=== PATIENT | male | born 1955 | race Caucasian/White ===

== ENCOUNTER 2017-10-12 15:46 | Inpatient (IN) | payer MEDICAID ==
[~2017-10-12] VITALS: Ht 177.8 cm; Wt 56.7 kg
[2017-10-12 16:14] LABS: BASOPHILS % (AUTO) 0.2 % (0-1); EOSINOPHILS # (AUTO) 0.1 X10'3 (0-0.9); EOSINOPHILS % (AUTO) 0.4 % (0-6); HEMATOCRIT 48.6 % (42.0-52.0); HEMOGLOBIN 16.1 g/dl (14.0-17.9); LYMPHOCYTES # (AUTO) 1.8 X10'3 (1.1-4.8); LYMPHOCYTES % (AUTO) 13.7 % (21-51); MEAN CORPUSCULAR HEMOGLOBIN 30.5 PG (27.0-31.0); MEAN CORPUSCULAR HGB CONC 33.2 % (33.0-36.5); MEAN CORPUSCULAR VOLUME 91.7 FL (78-98); MEAN PLATELET VOLUME 8.1 FL (7.4-10.4); MONOCYTES # (AUTO) 0.9 X10'3 (0-0.9); MONOCYTES % (AUTO) 7.1 % (2-12); NEUTROPHILS # (AUTO) 10.4 X10'3 (1.8-7.7); NEUTROPHILS % (AUTO) 78.6 % (42-75); PLATELET COUNT 405 X10'3 (140-440); RED CELL DISTRIBUTION WIDTH 13.9 % (11.5-14.5); WHITE BLOOD COUNT 13.3 X10'3 (4.5-11.0)
[2017-10-12 16:24] LABS: PARTIAL THROMBOPLASTIN TIME 27 SECONDS (22-32)
[2017-10-12 16:35] LABS: ALANINE AMINOTRANSFERASE 27 U/L (12-78); ALBUMIN 3.9 G/DL (3.4-5.0); ALKALINE PHOSPHATASE 77 IU/L (46-116); ANION GAP 4 (8-16); ASPARTATE AMINO TRANSFERASE 27 U/L (10-37); BILIRUBIN,TOTAL 0.5 MG/DL (0.1-1.0); BLOOD UREA NITROGEN 14 MG/DL (7-18); BUN/CREATININE RATIO 13.2 (5.4-32.0); CALCIUM 9.2 MG/DL (8.5-10.1); CHLORIDE 101 MMOL/L (99-107); CREATININE 1.06 MG/DL (0.60-1.10); GLUCOSE 145 MG/DL (70-104); POTASSIUM 3.6 MMOL/L (3.5-5.1); SODIUM 137 MMOL/L (135-145); TOTAL CARBON DIOXIDE 32.5 MMOL/L (24-32); TOTAL PROTEIN 7.8 G/DL (6.4-8.2); eGFR 70 ML/MIN
[2017-10-12] MEDS ORDERED: aspirin 325mg tablet PO ONE (16:40)
[2017-10-12] MEDS ORDERED: ipratropium/albuterol 3ml nebule NEB ONE (16:45)
[2017-10-12] MEDS ORDERED: methylPREDNISolone sod succ 125mg/2ml vial IV ONE (16:45)
[2017-10-12] MEDS ORDERED: CefTRIAXone/D5W-Rocephin 1gm 50 ML IV ONE (17:25)
[2017-10-12] MEDS ORDERED: azithromycin/NS 500mg/250ml 250 ML IV ONE (17:25)
[2017-10-12] MEDS ORDERED: ALB0.5UD IH (17:36)
[2017-10-12 17:38] LABS: D-DIMER < 0.19 MG/L FEU (0-0.50)
[2017-10-12] MEDS ORDERED: heparin 10,000 units/1 ML INJ IV PRN (17:55)
[2017-10-12] MEDS ORDERED: heparin 10,000 units/1 ML INJ IV ONE (17:55)
[2017-10-12] MEDS ORDERED: ondansetron/PF 4mg/2ml inj IV PRN (20:45)
[2017-10-12] MEDS ORDERED: mag hydrox/Alum hydrox/simeth 30ml oral suspension PO PRN (20:45)
[2017-10-12] MEDS ORDERED: ipratropium/albuterol 3ml nebule NEB PRN (20:45)
[2017-10-12] MEDS ORDERED: magnesium hydroxide 30ml (MOM) UD suspension PO PRN (20:45)
[2017-10-12] MEDS ORDERED: acetaminophen 325mg tablet PO PRN ×2 (20:45)
[2017-10-12] MEDS ORDERED: lisinopril 10 MG tablet PO SCH (20:50)
[2017-10-12 22:21] VITALS: BP 138/89
[2017-10-13] MEDS: methylPREDNISolone sod succ/PF 40mg inj. IV SCH ×4 (02:31→19:52)
[2017-10-13 03:00] VITALS: BP 107/65
[2017-10-13 04:08] LABS: BASOPHILS % (AUTO) 0 % (0-1); EOSINOPHILS % (AUTO) 0.6 % (0-6); LYMPHOCYTES # (AUTO) 0.5 X10'3 (1.1-4.8); LYMPHOCYTES % (AUTO) 6.2 % (21-51); MEAN CORPUSCULAR HEMOGLOBIN 30.6 PG (27.0-31.0); MEAN CORPUSCULAR HGB CONC 33.4 % (33.0-36.5); MEAN CORPUSCULAR VOLUME 91.7 FL (78-98); MEAN PLATELET VOLUME 8.4 FL (7.4-10.4); MONOCYTES # (AUTO) 0.1 X10'3 (0-0.9); MONOCYTES % (AUTO) 1.3 % (2-12); NEUTROPHILS # (AUTO) 7.3 X10'3 (1.8-7.7); NEUTROPHILS % (AUTO) 91.9 % (42-75); PLATELET COUNT 339 X10'3 (140-440); RED BLOOD COUNT 4.91 X10'6 (4.70-6.10); RED CELL DISTRIBUTION WIDTH 13.9 % (11.5-14.5); WHITE BLOOD COUNT 7.9 X10'3 (4.5-11.0)
[2017-10-13 04:26] LABS: ALBUMIN 3.3 G/DL (3.4-5.0); ANION GAP 4 (8-16); BLOOD UREA NITROGEN 20 MG/DL (7-18); BUN/CREATININE RATIO 21.1 (5.4-32.0); CALCIUM 9.2 MG/DL (8.5-10.1); CHLORIDE 105 MMOL/L (99-107); CREATININE 0.95 MG/DL (0.60-1.10); GLUCOSE 174 MG/DL (70-104); POTASSIUM 4.1 MMOL/L (3.5-5.1); SODIUM 140 MMOL/L (135-145); TOTAL CARBON DIOXIDE 30.8 MMOL/L (24-32); eGFR 80 ML/MIN
[2017-10-13 07:12] VITALS: BP 104/71
[2017-10-13] MEDS: aspirin 325mg tablet PO SCH (07:39)
[2017-10-13] MEDS: lisinopril 5mg tablet PO SCH (07:39)
[2017-10-13] MEDS: enoxaparin 40mg/0.4ml syringe SQ SCH (07:39)
[2017-10-13 11:00] VITALS: BP 124/86
[2017-10-13 15:00] VITALS: BP 125/79
[2017-10-13 19:00] VITALS: BP 133/91
[2017-10-13] MEDS: guaiFENesin ER 600mg tablet PO SCH (19:52)
[2017-10-13 23:00] VITALS: BP 128/72
[2017-10-14] MEDS: methylPREDNISolone sod succ/PF 40mg inj. IV SCH ×2 (01:44→08:26)
[2017-10-14 03:00] VITALS: BP 140/88
[2017-10-14 05:20] LABS: BASOPHILS % (AUTO) 0.1 % (0-1); EOSINOPHILS % (AUTO) 0 % (0-6); HEMATOCRIT 43.5 % (42.0-52.0); HEMOGLOBIN 14.5 g/dl (14.0-17.9); LYMPHOCYTES % (AUTO) 4.5 % (21-51); MEAN CORPUSCULAR HEMOGLOBIN 30.9 PG (27.0-31.0); MEAN CORPUSCULAR HGB CONC 33.3 % (33.0-36.5); MEAN CORPUSCULAR VOLUME 92.8 FL (78-98); MEAN PLATELET VOLUME 8.7 FL (7.4-10.4); MONOCYTES # (AUTO) 0.4 X10'3 (0-0.9); MONOCYTES % (AUTO) 1.8 % (2-12); NEUTROPHILS # (AUTO) 21.2 X10'3 (1.8-7.7); NEUTROPHILS % (AUTO) 93.6 % (42-75); PLATELET COUNT 355 X10'3 (140-440); RED BLOOD COUNT 4.69 X10'6 (4.70-6.10); RED CELL DISTRIBUTION WIDTH 14.1 % (11.5-14.5); WHITE BLOOD COUNT 22.6 X10'3 (4.5-11.0)
[2017-10-14 06:03] LABS: ALBUMIN 3.1 G/DL (3.4-5.0); ANION GAP 5 (8-16); BLOOD UREA NITROGEN 18 MG/DL (7-18); BUN/CREATININE RATIO 22.5 (5.4-32.0); CALCIUM 8.9 MG/DL (8.5-10.1); CHLORIDE 103 MMOL/L (99-107); GLUCOSE 139 MG/DL (70-104); POTASSIUM 4.2 MMOL/L (3.5-5.1); SODIUM 139 MMOL/L (135-145); TOTAL CARBON DIOXIDE 31.4 MMOL/L (24-32); eGFR > 90 ML/MIN
[2017-10-14 06:25] LABS: PLATELET ESTIMATE NORMAL; TOTAL CELLS COUNTED 100
[2017-10-14 06:30] VITALS: BP_SYST 104; BP_SYST 112; BP_DIAS 71
[2017-10-14] MEDS: ipratropium/albuterol 3ml nebule NEB SCH ×4 (07:08→19:00)
[2017-10-14] MEDS ORDERED: iohexol 350MG/ML 100ml bottle IV ONE (07:53)
[2017-10-14] MEDS: guaiFENesin ER 600mg tablet PO SCH ×2 (08:26→19:08)
[2017-10-14] MEDS: aspirin 325mg tablet PO SCH (08:26)
[2017-10-14] MEDS: lisinopril 5mg tablet PO SCH (08:26)
[2017-10-14] MEDS: enoxaparin 40mg/0.4ml syringe SQ SCH (08:31)
[2017-10-14 11:00] VITALS: BP 151/82
[2017-10-14] MEDS ORDERED: metoprolol tartrate 1mg/ml inj IV PRN (14:20)
[2017-10-14] MEDS ORDERED: nitroGLYCERIN 0.4mg SUBLingual tab SL PRN (14:20)
[2017-10-14] MEDS ORDERED: CAFFEINE CITRATE 60 MG/3 ML injection vial IV PRN (14:20)
[2017-10-14] MEDS ORDERED: regadenoson 0.4mg/5ml syringe IV PRN (14:20)
[2017-10-14] MEDS: aspirin 325mg tablet, delayed-release (Ecotrin) PO SCH (14:59)
[2017-10-14 15:00] VITALS: BP 109/60
[2017-10-14 18:21] LABS: CHOL/HDL RATIO 2.6 (0.00-4.99); CHOLESTEROL 174 MG/DL (0-200); HDL CHOLESTEROL 66 MG/DL (35-60); LDL CHOLESTEROL 89 MG/DL (50-100); TRIGLYCERIDES 65 MG/DL (20-135)
[2017-10-14 19:00] VITALS: BP 119/63
[2017-10-14 23:00] VITALS: BP 129/77
[2017-10-15] VITALS (13 sets, daily range): BP systolic 115–154; BP diastolic 40–93
[2017-10-15 05:36] LABS: BASOPHILS % (AUTO) 0.2 % (0-1); EOSINOPHILS % (AUTO) 0 % (0-6); HEMATOCRIT 44.7 % (42.0-52.0); HEMOGLOBIN 14.8 g/dl (14.0-17.9); LYMPHOCYTES # (AUTO) 1.4 X10'3 (1.1-4.8); LYMPHOCYTES % (AUTO) 8.6 % (21-51); MEAN CORPUSCULAR HEMOGLOBIN 30.5 PG (27.0-31.0); MEAN CORPUSCULAR HGB CONC 33.1 % (33.0-36.5); MEAN CORPUSCULAR VOLUME 92.1 FL (78-98); MEAN PLATELET VOLUME 9.1 FL (7.4-10.4); MONOCYTES # (AUTO) 0.6 X10'3 (0-0.9); MONOCYTES % (AUTO) 3.4 % (2-12); NEUTROPHILS # (AUTO) 14.4 X10'3 (1.8-7.7); NEUTROPHILS % (AUTO) 87.8 % (42-75); PLATELET COUNT 314 X10'3 (140-440); RED BLOOD COUNT 4.86 X10'6 (4.70-6.10); RED CELL DISTRIBUTION WIDTH 14.5 % (11.5-14.5); WHITE BLOOD COUNT 16.4 X10'3 (4.5-11.0)
[2017-10-15 05:43] LABS: ALBUMIN 2.9 G/DL (3.4-5.0); ANION GAP 5 (8-16); BLOOD UREA NITROGEN 24 MG/DL (7-18); BUN/CREATININE RATIO 29.3 (5.4-32.0); CALCIUM 8.7 MG/DL (8.5-10.1); CHLORIDE 105 MMOL/L (99-107); CREATININE 0.82 MG/DL (0.60-1.10); GLUCOSE 90 MG/DL (70-104); POTASSIUM 3.7 MMOL/L (3.5-5.1); SODIUM 142 MMOL/L (135-145); eGFR > 90 ML/MIN
[2017-10-15] MEDS: ipratropium/albuterol 3ml nebule NEB SCH ×4 (07:35→19:20)
[2017-10-15] MEDS: aspirin 325mg tablet, delayed-release (Ecotrin) PO SCH (07:41)
[2017-10-15] MEDS: enoxaparin 40mg/0.4ml syringe SQ SCH (07:41)
[2017-10-15] MEDS: lisinopril 5mg tablet PO SCH (07:41)
[2017-10-15] MEDS: guaiFENesin ER 600mg tablet PO SCH ×2 (07:41→19:51)
[2017-10-15] MEDS: aspirin 325mg tablet PO SCH (07:41)
[2017-10-15] MEDS ORDERED: regadenoson 0.4mg/5ml syringe IV ONE (12:04)
[2017-10-15] MEDS ORDERED: CAFFEINE CITRATE 60 MG/3 ML injection vial IV ONE (12:04)
[2017-10-16 03:00] VITALS: BP 148/97
[2017-10-16 04:58] LABS: BASOPHILS % (AUTO) 0.4 % (0-1); EOSINOPHILS # (AUTO) 0.2 X10'3 (0-0.9); EOSINOPHILS % (AUTO) 1.5 % (0-6); HEMATOCRIT 44.1 % (42.0-52.0); HEMOGLOBIN 14.8 g/dl (14.0-17.9); LYMPHOCYTES # (AUTO) 2.1 X10'3 (1.1-4.8); LYMPHOCYTES % (AUTO) 21.1 % (21-51); MEAN CORPUSCULAR HEMOGLOBIN 30.9 PG (27.0-31.0); MEAN CORPUSCULAR HGB CONC 33.6 % (33.0-36.5); MEAN CORPUSCULAR VOLUME 91.9 FL (78-98); MEAN PLATELET VOLUME 8.3 FL (7.4-10.4); MONOCYTES # (AUTO) 0.8 X10'3 (0-0.9); MONOCYTES % (AUTO) 7.9 % (2-12); NEUTROPHILS % (AUTO) 69.1 % (42-75); PLATELET COUNT 319 X10'3 (140-440); RED CELL DISTRIBUTION WIDTH 14.2 % (11.5-14.5); WHITE BLOOD COUNT 10.1 X10'3 (4.5-11.0)
[2017-10-16 05:14] LABS: ALBUMIN 2.8 G/DL (3.4-5.0); ANION GAP 4 (8-16); BLOOD UREA NITROGEN 28 MG/DL (7-18); BUN/CREATININE RATIO 30.1 (5.4-32.0); CALCIUM 8.4 MG/DL (8.5-10.1); CHLORIDE 103 MMOL/L (99-107); CREATININE 0.93 MG/DL (0.60-1.10); GLUCOSE 88 MG/DL (70-104); SODIUM 139 MMOL/L (135-145); TOTAL CARBON DIOXIDE 31.9 MMOL/L (24-32); eGFR 82 ML/MIN
[2017-10-16 06:00] VITALS: BP 145/85
[2017-10-16] MEDS: ipratropium/albuterol 3ml nebule NEB SCH ×4 (07:57→19:13)
[2017-10-16] MEDS: enoxaparin 40mg/0.4ml syringe SQ SCH (08:16)
[2017-10-16] MEDS: guaiFENesin ER 600mg tablet PO SCH ×2 (08:17→19:38)
[2017-10-16] MEDS: lisinopril 5mg tablet PO SCH (08:17)
[2017-10-16] MEDS: aspirin 325mg tablet PO SCH (08:17)
[2017-10-16] MEDS: aspirin 325mg tablet, delayed-release (Ecotrin) PO SCH (08:22)
[2017-10-16] MEDS: LORazepam 0.5 MG tablet PO PRN (10:39)
[2017-10-16 11:00] VITALS: BP 134/90
[2017-10-16] MEDS: metoprolol succinate 25mg (24-HOUR) SR. Tablet PO SCH (12:25)
[2017-10-16 15:00] VITALS: BP 135/89
[2017-10-16 19:00] VITALS: BP 134/81
[2017-10-16 23:00] VITALS: BP 142/87
[2017-10-17 03:00] VITALS: BP 114/74
[2017-10-17 04:29] LABS: BASOPHILS % (AUTO) 0.4 % (0-1); EOSINOPHILS # (AUTO) 0.3 X10'3 (0-0.9); HEMATOCRIT 44.5 % (42.0-52.0); HEMOGLOBIN 14.9 g/dl (14.0-17.9); LYMPHOCYTES # (AUTO) 2.1 X10'3 (1.1-4.8); LYMPHOCYTES % (AUTO) 21.3 % (21-51); MEAN CORPUSCULAR HEMOGLOBIN 30.9 PG (27.0-31.0); MEAN CORPUSCULAR HGB CONC 33.4 % (33.0-36.5); MEAN CORPUSCULAR VOLUME 92.4 FL (78-98); MEAN PLATELET VOLUME 8.3 FL (7.4-10.4); MONOCYTES # (AUTO) 0.8 X10'3 (0-0.9); MONOCYTES % (AUTO) 8.1 % (2-12); NEUTROPHILS # (AUTO) 6.7 X10'3 (1.8-7.7); NEUTROPHILS % (AUTO) 67.2 % (42-75); PLATELET COUNT 319 X10'3 (140-440); RED BLOOD COUNT 4.82 X10'6 (4.70-6.10); RED CELL DISTRIBUTION WIDTH 14.5 % (11.5-14.5)
[2017-10-17 04:51] LABS: ALBUMIN 2.8 G/DL (3.4-5.0); ANION GAP 3 (8-16); BLOOD UREA NITROGEN 19 MG/DL (7-18); BUN/CREATININE RATIO 19.4 (5.4-32.0); CALCIUM 8.5 MG/DL (8.5-10.1); CHLORIDE 103 MMOL/L (99-107); CREATININE 0.98 MG/DL (0.60-1.10); GLUCOSE 90 MG/DL (70-104); POTASSIUM 4.2 MMOL/L (3.5-5.1); SODIUM 139 MMOL/L (135-145); TOTAL CARBON DIOXIDE 32.8 MMOL/L (24-32); eGFR 77 ML/MIN
[2017-10-17 06:00] VITALS: BP 129/91
[2017-10-17] MEDS: metoprolol succinate 25mg (24-HOUR) SR. Tablet PO SCH (08:00)
[2017-10-17] MEDS: aspirin 325mg tablet, delayed-release (Ecotrin) PO SCH (08:00)
[2017-10-17] MEDS: enoxaparin 40mg/0.4ml syringe SQ SCH (08:00)
[2017-10-17] MEDS: guaiFENesin ER 600mg tablet PO SCH ×2 (08:00→19:55)
[2017-10-17] MEDS: lisinopril 5mg tablet PO SCH (08:00)
[2017-10-17] MEDS: atorvastatin 10mg tablet PO SCH (08:00)
[2017-10-17] MEDS: ipratropium/albuterol 3ml nebule NEB SCH ×3 (08:37→19:50)
[2017-10-17] MEDS: LORazepam 0.5 MG tablet PO PRN ×2 (10:00→19:55)
[2017-10-17 11:00] VITALS: BP 132/84
[2017-10-17 15:00] VITALS: BP 123/64
[2017-10-17 19:00] VITALS: BP 124/80
[2017-10-17 23:00] VITALS: BP 133/79
[2017-10-18 03:00] VITALS: BP 142/91
[2017-10-18 06:00] VITALS: BP 129/68
[2017-10-18] MEDS: ipratropium/albuterol 3ml nebule NEB SCH ×4 (07:06→20:04)
[2017-10-18] MEDS: lisinopril 5mg tablet PO SCH (08:45)
[2017-10-18] MEDS: metoprolol succinate 25mg (24-HOUR) SR. Tablet PO SCH (08:45)
[2017-10-18] MEDS: aspirin 325mg tablet, delayed-release (Ecotrin) PO SCH (08:45)
[2017-10-18] MEDS: LORazepam 0.5 MG tablet PO PRN ×2 (08:45→19:56)
[2017-10-18] MEDS: atorvastatin 10mg tablet PO SCH (08:46)
[2017-10-18] MEDS: guaiFENesin ER 600mg tablet PO SCH ×2 (08:46→19:55)
[2017-10-18] MEDS: enoxaparin 40mg/0.4ml syringe SQ SCH (08:47)
[2017-10-18 11:00] VITALS: BP 137/85
[2017-10-18 15:00] VITALS: BP 109/89
[2017-10-18 19:00] VITALS: BP 135/90
[2017-10-18 23:00] VITALS: BP 151/88
[2017-10-19 03:00] VITALS: BP 101/67
[2017-10-19 06:00] VITALS: BP 136/90
[2017-10-19] MEDS: ipratropium/albuterol 3ml nebule NEB SCH ×3 (07:00→15:00)
[2017-10-19] MEDS ORDERED: LISI-604 PO (08:59)
[2017-10-19] MEDS ORDERED: METO-395 PO (08:59)
[2017-10-19] MEDS: metoprolol succinate 25mg (24-HOUR) SR. Tablet PO SCH (09:14)
[2017-10-19] MEDS: lisinopril 5mg tablet PO SCH (09:14)
[2017-10-19] MEDS: enoxaparin 40mg/0.4ml syringe SQ SCH (09:14)
[2017-10-19] MEDS: atorvastatin 10mg tablet PO SCH (09:14)
[2017-10-19] MEDS: aspirin 325mg tablet, delayed-release (Ecotrin) PO SCH (09:15)
[2017-10-19] MEDS: guaiFENesin ER 600mg tablet PO SCH (09:15)
[2017-10-19] MEDS: LORazepam 0.5 MG tablet PO PRN (09:17)
[2017-10-19 11:00] VITALS: BP 108/62
[2017-10-19 15:00] VITALS: BP 121/83
== END 2017-10-19 20:17 | disposition home or self-care (01) | DRG 140 ==
LOC: ER 15:46 → ED HOLD 20:42 → PCU 3S 22:00
PROVIDERS: ADMIT Internal Medicine; ATTEND Internal Medicine
DX: J44.1 Chronic obstructive pulmonary disease with (acute) exacerbation (principal); J96.01 Acute respiratory failure with hypoxia; R64 Cachexia; I34.0 Nonrheumatic mitral (valve) insufficiency; I10 Essential (primary) hypertension; Z66 Do not resuscitate; I25.2 Old myocardial infarction; Z99.81 Dependence on supplemental oxygen; I25.10 Atherosclerotic heart disease of native coronary artery without angina pectoris; D72.829 Elevated white blood cell count, unspecified; Z79.82 Long term (current) use of aspirin; Z87.891 Personal history of nicotine dependence; Z95.5 Presence of coronary angioplasty implant and graft; Z68.1 Body mass index [BMI] 19.9 or less, adult; T38.0X5A Adverse effect of glucocorticoids and synthetic analogues, initial encounter; Y92.89 Other specified places as the place of occurrence of the external cause
CPT/HCPCS: 36415; 71045; 71250; 71275; 78452; 80048; 80053; 80061; 83880; 84484; 85025; 85379; 85610; 85730; 87070; 93005; 93017; 93308; 94640; 94667; 94760; 96365; 96367; 96375; 97162; 99285; A9500; J0456; J0696; J1644; J1650; J2920; J2930; J7030; Q9967

== ENCOUNTER 2020-10-23 19:28 | Emergency (ER) | payer MEDICARE, MEDICAID ==
[~2020-10-23] VITALS: Ht 177.8 cm; Wt 55.0 kg
[~2020-10-23 19:28] MED LIST: ALBU18HF2 PO; ASPI-1144 PO; FLUT1BLS4 INH; HYDR-3965 PO; LORA-269 PO; METF-436 PO; NICO-687 TOP; SERT50TA PO
--- NOTE | 2020-10-23 20:05 | NUR ---
inderjit peres assessing patient during triage
[2020-10-23 20:55] VITALS: BP 151/99
== END 2020-10-23 21:00 | disposition home or self-care (01) ==
LOC: ER 19:28
DX: J44.9 Chronic obstructive pulmonary disease, unspecified (principal); I10 Essential (primary) hypertension; I25.2 Old myocardial infarction; Z59.0 Homelessness; Z79.82 Long term (current) use of aspirin; Z79.899 Other long term (current) drug therapy
CPT/HCPCS: 99281

== ENCOUNTER 2020-10-23 23:19 | Emergency (ER) | payer MEDICARE, MEDICAID ==
[~2020-10-23] VITALS: Ht 167.6 cm; Wt 55.0 kg
[2020-10-23 23:42] VITALS: BP 125/86
== END 2020-10-24 00:01 | disposition home or self-care (01) ==
LOC: ER 23:19
DX: R06.02 Shortness of breath (principal); J44.1 Chronic obstructive pulmonary disease with (acute) exacerbation; I10 Essential (primary) hypertension; I25.2 Old myocardial infarction; Z59.0 Homelessness; Z79.82 Long term (current) use of aspirin; Z79.899 Other long term (current) drug therapy
CPT/HCPCS: 99284

== ENCOUNTER 2020-10-25 02:07 | Emergency (ER) | payer MEDICARE, MEDICAID ==
[~2020-10-25] VITALS: Ht 177.8 cm; Wt 54.5 kg
[2020-10-25 02:15] VITALS: BP 116/67
--- NOTE | 2020-10-25 02:57 | NUR ---
DR RASHID AT BEDSIDE AND REPROTS TO PT HE SAW THE XRAY RESULTS TAKEN YESTERDAY BY ANGELA FRAIRE AND THERE IS NO FRACTURE AND THERE IS NOTHING FURTHER THAT HE CAN DO. HE TOLD PT HE WILL NEED TO F/U WITH HIS PCP AND GET REFERRAL FOR PHYSICAL THERAPY. PT WAS ABLE TO SLOWLY, BUT INDEPENDANTLY MOVE FROM THE TO THE [facility] USING TO ARMS OF THE FOR SUPPORT HE MOVED.
[2020-10-25] MEDS ORDERED: acetaminophen 325mg tablet PO ONE (03:00)
--- NOTE | 2020-10-25 04:12 | NUR ---
PT PROVIDED TSHIRT, AND SACK LUNCH AND A [facility] PA[facility] R[facility]. PT REPORTS HE CAN GET HIMSELF FROM THE WC INTO THE CAB. PT ABLE TO GET UP TO HIS WC FROM THE BED AND DID USE THE BEDSIDE COMMODE INDEPENDANTLY AND HAD LARGE BM. PT IS SLOW WITH HIS MOVEMENT AND REQUIRES FURNITURE TO HOLD ONTO.
== END 2020-10-25 04:16 | disposition home or self-care (01) ==
LOC: ER 02:08
DX: M25.552 Pain in left hip (principal); J44.9 Chronic obstructive pulmonary disease, unspecified; I10 Essential (primary) hypertension; I25.2 Old myocardial infarction; Z59.0 Homelessness; Z79.82 Long term (current) use of aspirin; Z79.84 Long term (current) use of oral hypoglycemic drugs; Z79.899 Other long term (current) drug therapy; Z99.3 Dependence on wheelchair
CPT/HCPCS: 99284

== ENCOUNTER 2020-10-26 14:05 | Emergency (ER) | payer MEDICARE, MEDICAID ==
[~2020-10-26] VITALS: Ht 177.8 cm; Wt 54.5 kg
[2020-10-26 14:44] VITALS: BP 131/90
== END 2020-10-26 21:20 | disposition home or self-care (01) ==
LOC: ER 14:06
DX: Z02.89 Encounter for other administrative examinations (principal); J41.0 Simple chronic bronchitis; R06.02 Shortness of breath; I10 Essential (primary) hypertension; I25.2 Old myocardial infarction; Z59.0 Homelessness; Z79.82 Long term (current) use of aspirin; Z79.899 Other long term (current) drug therapy
CPT/HCPCS: 93005; 99283

== ENCOUNTER 2020-10-29 15:48 | Emergency (ER) | payer MEDICARE, MEDICAID ==
[~2020-10-29] VITALS: Ht 172.7 cm; Wt 60.0 kg
[2020-10-29] MEDS ORDERED: dexamethasone 4mg tablet PO ONE (16:10)
--- NOTE | 2020-10-29 16:25 | NUR ---
Pt was brought over from ER main to bed 21. Pt was BIB ambulance after self presenting to [facility] stating that he was suicidal and would kill himself by wheeling his chair into traffic. Pt presents as anxious and c/o SOB though O2 sats are greater than 95% on RA. Pt states he is depressed and still suicidal.
[2020-10-29] MEDS: LORazepam 1 MG tablet PO PRN (16:26)
--- NOTE | 2020-10-29 16:26 | NUR ---
Pt was given PRN Ativan 1 mg.
[2020-10-29] MEDS ORDERED: LORazepam 1 MG tablet PO ONE (16:50)
--- NOTE | 2020-10-29 16:50 | NUR ---
Pt was given an additional one time dose of Ativan 1 mg for increased anxiety.
[2020-10-29 16:54] LABS: BASOPHILS # (AUTO) 0.1 X10'3 (0-0.2); BASOPHILS % (AUTO) 0.4 % (0-1); EOSINOPHILS # (AUTO) 0.1 X10'3 (0-0.9); HEMATOCRIT 40.8 % (42.0-52.0); HEMOGLOBIN 13.4 g/dl (14.0-17.9); LYMPHOCYTES # (AUTO) 0.9 X10'3 (1.1-4.8); LYMPHOCYTES % (AUTO) 7.5 % (21-51); MEAN CORPUSCULAR HEMOGLOBIN 29.3 PG (27.0-31.0); MEAN CORPUSCULAR HGB CONC 32.8 g/dL (33.0-36.5); MEAN CORPUSCULAR VOLUME 89.3 FL (78-98); MEAN PLATELET VOLUME 8.1 FL (7.4-10.4); MONOCYTES # (AUTO) 1.1 X10'3 (0-0.9); NEUTROPHILS # (AUTO) 10.1 X10'3 (1.8-7.7); NEUTROPHILS % (AUTO) 82.1 % (42-75); PLATELET COUNT 308 X10'3 (140-440); RED BLOOD COUNT 4.57 X10'6 (4.70-6.10); RED CELL DISTRIBUTION WIDTH 14.5 % (11.5-14.5); WHITE BLOOD COUNT 12.3 X10'3 (4.5-11.0)
[2020-10-29 17:00] LABS: CLARITY,URINE SLIGHTLY CLOUDY (Clear); GLUCOSE, URINE NEGATIVE (Neg); KETONES,URINE 15 mg/dl (Neg); LEUKOCYTE ESTERASE ,URINE NEGATIVE (Neg); NITRITES, URINE NEGATIVE (Neg); OCCULT BLOOD,URINE NEGATIVE (Neg); PH,URINE 5.5 (4.8-8.0); PROTEIN,URINE NEGATIVE (Neg)
--- NOTE | 2020-10-29 17:00 | NUR ---
UA was collected and sent, labs were drawn.
[2020-10-29 17:07] LABS: ALANINE AMINOTRANSFERASE 34 U/L (12-78); ALBUMIN 3.1 G/DL (3.4-5.0); ALBUMIN/GLOBULIN RATIO 0.9 (1.1-1.5); ALKALINE PHOSPHATASE 84 IU/L (46-116); ANION GAP 8 (8-16); ASPARTATE AMINO TRANSFERASE 22 U/L (10-37); BILIRUBIN,TOTAL 0.3 MG/DL (0.1-1.0); BLOOD UREA NITROGEN 10 MG/DL (7-18); BUN/CREATININE RATIO 11.5 (5.4-32.0); CHLORIDE 106 MMOL/L (99-107); CREATININE 0.87 MG/DL (0.60-1.10); GLUCOSE 72 MG/DL (70-104); POTASSIUM 3.6 MMOL/L (3.5-5.1); SODIUM 141 MMOL/L (135-145); TOTAL CARBON DIOXIDE 26.7 MMOL/L (24-32); TOTAL PROTEIN 6.7 G/DL (6.4-8.2); eGFR 88 ML/MIN
[2020-10-29 17:13] LABS: URINE AMPHETAMINE SCREEN NEGATIVE (Neg); URINE BARBITUATE SCREEN NEGATIVE (Neg); URINE BENZODIAZEPINES SCREEN NEGATIVE (Neg); URINE CANNABINOID SCREEN NEGATIVE (Neg); URINE COCAINE SCREEN NEGATIVE (Neg); URINE METHADONE SCREEN NEGATIVE (Neg); URINE OPIATE SCREEN NEGATIVE (Neg); URINE PHENCYCLIDINE SCREEN NEGATIVE (Neg)
[2020-10-29 17:15] LABS: ETHANOL < 0.010 GM/DL (0.0-0.010)
[2020-10-29 17:17] LABS: COLOR,URINE DARK YELLOW (Yellow); UA COLLECTION TYPE CLN CATCH MIDSTREAM
[2020-10-29] MEDS ORDERED: SERT-153 PO (17:22)
[2020-10-29 17:26] LABS: BACTERIA,URINE NONE SEEN /HPF (Neg); MUCUS STRANDS MANY /LPF (Neg); RBC,URINE 0-2 /HPF (0-2); SQUAMOUS EPITHELIAL CELL,UR FEW /LPF (FEW); WBC,URINE 0-4 /HPF (0-4)
--- NOTE | 2020-10-29 17:44 | NUR ---
Pt declined to participate in the [facility] Suicide risk assessment at this time.
--- NOTE | 2020-10-29 21:40 | NUR ---
pt is resting, no needs at this time.
--- NOTE | 2020-10-29 23:24 | NUR ---
pt continues to sleep, rr unlabored.
--- NOTE | 2020-10-30 03:11 | NUR ---
pt appears to be sleeping, no s/s of distress noted.
[2020-10-30] MEDS: sertraline 50mg tablet PO SCH (08:06)
[2020-10-30] MEDS: aspirin 81mg tab.chew PO SCH (08:06)
[2020-10-30] MEDS: nicotine 21mg patch - 24 hr TD SCH (08:07)
--- NOTE | 2020-10-30 08:23 | NUR ---
Pt ate breakfast, took meds and went back to sleep
[2020-10-30] MEDS: albuterol 2.5 MG/3 ML nebule NEB PRN (11:34)
--- NOTE | 2020-10-30 11:35 | NUR ---
Pt wakes up and states he feels like he is having trouble breathing. Pt sitting up, BBS diminished. RT called for tx. RT came and tx done.
[2020-10-30] MEDS: LORazepam 1 MG tablet PO PRN ×3 (12:00→20:37)
--- NOTE | 2020-10-30 12:03 | NUR ---
Pt states his "whole body hurts, after I had covid a month ago. All my muscles hurt". Requests something to calm him. Ativan given po.
--- NOTE | 2020-10-30 12:38 | NUR ---
RT called to reassesss pt as pt continues to c/o SOB. Pt sitting in tripod position. RT states they will come assess
--- NOTE | 2020-10-30 12:49 | NUR ---
RT here to eval. No other med orders available. RN request MD Domingo to eval pt and came to pt bedside. No more orders needed at this x per
--- NOTE | 2020-10-30 12:52 | NUR ---
Pt eating lunch
--- NOTE | 2020-10-30 13:30 | NUR ---
Pt continues to c/o ADAM. 98% on RA rechecked per RN
--- NOTE | 2020-10-30 14:32 | NUR ---
Pt to bathroom via w/c. While in bathroom RN checked on pt as it had been taking a while. He states " I didn't make it in time and crapped my pants". Pt given cleansing wipes and new pants to change. He changed and cleaned himself. Another RN and tech changed pt bedding and pt then sat in w/c at bedside and is reading a magazine
--- NOTE | 2020-10-30 16:55 | NUR ---
Pt requests Ativan again for "whole body pain". Ativan given
[2020-10-30] MEDS: HYDROcodone/acetaminophen 10/325mg tab PO PRN (20:33)
[2020-10-31] MEDS ORDERED: ondansetron 4mg rapidly disintigrating tab PO ONE (02:00)
--- NOTE | 2020-10-31 08:30 | NUR ---
Pt. awake and eating breakfast at bedside. Pt. took all medications.
[2020-10-31] MEDS: sertraline 50mg tablet PO SCH (08:39)
[2020-10-31] MEDS: aspirin 81mg tab.chew PO SCH (08:39)
[2020-10-31] MEDS: nicotine 21mg patch - 24 hr TD SCH (08:40)
--- NOTE | 2020-10-31 10:30 | NUR ---
Pt. asleep in bed on left side. Normal R&R of respirations noted. Pt. in no apparent distress.
--- NOTE | 2020-10-31 12:30 | NUR ---
Pt. sitting at bedside drinking coffee.
[2020-10-31] MEDS: LORazepam 1 MG tablet PO PRN (13:31)
[2020-10-31] MEDS: HYDROcodone/acetaminophen 10/325mg tab PO PRN (13:34)
--- NOTE | 2020-10-31 14:30 | NUR ---
Pt. awake and sleeping in bed on his left side. Normal R&R of respirations observed. Pt. in no apparent distress.
--- NOTE | 2020-10-31 16:30 | NUR ---
Pt. asleep in bed lying on left side. Normal R&R of respirations observed. Pt. in no apparent distress.
--- NOTE | 2020-10-31 18:16 | NUR ---
Pt. awake and eating dinner in bed. Pt. c/o of shortness of breath and respiratory paged.
[2020-10-31] MEDS: albuterol 2.5 MG/3 ML nebule NEB PRN ×2 (18:28→23:54)
--- NOTE | 2020-10-31 20:42 | NUR ---
Assumed care from ANITHA Paul. Pt moved to [address] and continues to sleep, even unlabored respirations and no obvious distress at this time.
--- NOTE | 2020-10-31 23:00 | NUR ---
PT AWAKE AND ALERT TO SURROUNDINGS, SITTING QUIETLY. PT ASKED FOR SNACK AND WAS GIVEN SOME FOOD.
[2020-11-01] MEDS: LORazepam 1 MG tablet PO PRN ×3 (00:19→18:07)
[2020-11-01] MEDS: HYDROcodone/acetaminophen 10/325mg tab PO PRN ×3 (00:20→18:09)
--- NOTE | 2020-11-01 00:30 | NUR ---
PT WOKE UP AND WAS SITTING FORWARD ASKING FOR A BREATHING TREATMENT. RT NOTIFIED OF PT NEEDS.
--- NOTE | 2020-11-01 01:14 | NUR ---
PT RESTING AT THIS TIME, ON RIGHT SIDE, NO SIGNS OF DISTRESS AND EVEN RESPIRATIONS.
--- NOTE | 2020-11-01 04:48 | NUR ---
PT RESTING SINCE BREATHING TREATMENT. PT LAYING ON RIGHT SIDE, NO SIGN OF DISTTRESS AT THIS TIME.
--- NOTE | 2020-11-01 07:00 | NUR ---
Received Pt in bed sleeping w/o distress. Pt transfered from main ER to ER Overflow.
[2020-11-01] MEDS: nicotine 21mg patch - 24 hr TD SCH (08:44)
[2020-11-01] MEDS: sertraline 50mg tablet PO SCH (08:44)
[2020-11-01] MEDS: aspirin 81mg tab.chew PO SCH (08:44)
--- NOTE | 2020-11-01 09:39 | NUR ---
Pt woke and took AM meds w/o issue. Pt ate breakfast and received prn Ativan and [place]. Overall pleasant and cooperative. Pt returned to sleep.
--- NOTE | 2020-11-01 11:30 | NUR ---
Pt in bed sleeping.
--- NOTE | 2020-11-01 14:00 | NUR ---
Pt ate lunch. and ambulated to bathroom. Pt returned to bed w/o distress, c/o pain or issue.
--- NOTE | 2020-11-01 16:30 | NUR ---
Pt was re-evaluated by [facility] and 5150 Hold was renewed. Pt given a snack and fluids at his request and is resting in bed.
--- NOTE | 2020-11-01 19:07 | NUR ---
One to one with the patient who was cooperative with the evening assessment. He is depressed with feelings of helplessness and hopelessness. He described his anxiety as high. He described his mood as "no good... I can't handle this" He feels over whelmed with physical limitations, homelessness and lack of support in the community. Pyschotic symptoms were denied. Suicidal thoughts continue.
--- NOTE | 2020-11-01 20:23 | NUR ---
The patient appears to be sleeping on his bed
--- NOTE | 2020-11-01 22:18 | NUR ---
The patient is resting on his bed.
--- NOTE | 2020-11-01 23:42 | NUR ---
The patient appears to be sleeping
[2020-11-02] MEDS: albuterol 2.5 MG/3 ML nebule NEB PRN ×2 (01:06→18:45)
[2020-11-02] MEDS: HYDROcodone/acetaminophen 10/325mg tab PO PRN ×3 (01:17→17:58)
--- NOTE | 2020-11-02 01:21 | NUR ---
The patient awake and requested breathing treatment. RT paged and treatment given. Patient complain of chronic pain and norco given as ordered. Patient also requested a snack and one was provided.
[2020-11-02] MEDS: aspirin 81mg tab.chew PO SCH (08:24)
[2020-11-02] MEDS: sertraline 50mg tablet PO SCH (08:24)
[2020-11-02] MEDS: nicotine 21mg patch - 24 hr TD SCH (08:26)
[2020-11-02] MEDS: LORazepam 1 MG tablet PO PRN ×2 (08:32→17:58)
--- NOTE | 2020-11-02 08:45 | NUR ---
pt awake, eating breakfast. requesting pain meds, ativan and nicotine patch replacement. appears anxious rocking back and forth. meds given.
--- NOTE | 2020-11-02 12:21 | NUR ---
Pt. laying quietly with eyes closed. no acute distress noted.
--- NOTE | 2020-11-02 14:30 | NUR ---
Pt. asleep in bed on left side. Respirations 20. Pt. in no apparent distress.
--- NOTE | 2020-11-02 16:30 | NUR ---
Pt. is awake in bed resting on his left side. pt. in no apparent distress.
--- NOTE | 2020-11-02 17:45 | NUR ---
Pt. c/o of SOB and respiratory paged.
--- NOTE | 2020-11-02 18:00 | NUR ---
Pt. c/o of pain and anxiety and given Ativan and [place] PO.
--- NOTE | 2020-11-02 18:27 | NUR ---
2ND PAGE SENT TO RESPIRATORY FOR BREATHING TX.
--- NOTE | 2020-11-02 18:45 | NUR ---
RESP AT BEDSIDER FOR BREATHING TREATMENT
--- NOTE | 2020-11-03 01:11 | NUR ---
SBAR REPORTED, ASSUMED CARE. I AGREE W/ PRIOR RNS HEAD TO TOE ASSESSMENT. PT SLEEPING ON LEFT SIDE W/ HOB AT 30 DEGREE. RESP EVEN AND UNLABORED. SHOWS NO S/S OF ACUTE DISTRESS. PT IN DIRECT LINE OF SIGHT.
--- NOTE | 2020-11-03 01:12 | NUR ---
PT WOKE UP ASKING "IS IT LUNCH TIME YET". I TOLD HIM THE TIME IS 1:00 IN THE MORNING. PT THEN SAID "THIS IS BULL SHIT"! HE ROLLED ONTO LEFT SIDE AND WENT BACK TO SLEEP.
--- NOTE | 2020-11-03 02:07 | NUR ---
PT RESTING W/O COMPLAINTS ON LEFT SIDE. HOB ELEVATED BY 30 DEGREES, BED LOCKED AND LOW. BREATHING UNLABORED AND EVEN. SHOWS NO S/S OF ACUTE DISTRESS.
--- NOTE | 2020-11-03 03:20 | NUR ---
PT RESTING W/O COMPLAINTS ON RIGHT SIDE. HOB ELEVATED BY 30 DEGREES, BED LOCKED AND LOW. BREATHING UNLABORED AND EVEN. SHOWS NO S/S OF ACUTE DISTRESS.
--- NOTE | 2020-11-03 04:10 | NUR ---
PT RESTING W/O COMPLAINTS ON RIGHT SIDE. HOB ELEVATED BY 30 DEGREES, BED LOCKED AND LOW. BREATHING UNLABORED AND EVEN. SHOWS NO S/S OF ACUTE DISTRESS.
--- NOTE | 2020-11-03 05:00 | NUR ---
PT AWAKE, USING URINAL. DENIES COMPLAINTS. BACK TO BED RESTING. PT HAS HAD NO OUTBURSTS OR DISRUPTIVE BEHAVIOUR.
--- NOTE | 2020-11-03 06:07 | NUR ---
PT RESTING, SHOWS NO S/S OF ACUTE DISTRESS.
[2020-11-03] MEDS: sertraline 50mg tablet PO SCH (08:27)
[2020-11-03] MEDS: nicotine 21mg patch - 24 hr TD SCH (08:27)
[2020-11-03] MEDS: aspirin 81mg tab.chew PO SCH (08:27)
[2020-11-03] MEDS: HYDROcodone/acetaminophen 10/325mg tab PO PRN ×3 (08:29→23:36)
[2020-11-03] MEDS: LORazepam 1 MG tablet PO PRN ×3 (08:29→20:36)
[2020-11-03] MEDS: albuterol 2.5 MG/3 ML nebule NEB PRN ×3 (09:16→20:16)
--- NOTE | 2020-11-03 19:41 | NUR ---
patient asleep on side, no sign of distress and has no needs at this time. will cont to monitor.
[2020-11-04] MEDS: LORazepam 1 MG tablet PO PRN ×2 (00:48→12:26)
[2020-11-04] MEDS ORDERED: diazepam 5mg tablet PO ONE (01:55)
--- NOTE | 2020-11-04 02:07 | NUR ---
patient very restless and complaining of not being able to sleep, was in tears. Asked MD Nelson for orders, orders given see mar. patient has calmed down, eating a turkey sandwich at this time.
[2020-11-04] MEDS: albuterol 2.5 MG/3 ML nebule NEB PRN ×2 (06:56→20:19)
--- NOTE | 2020-11-04 07:05 | NUR ---
Pt was awake and cooperated with 1:1 assesement. Pt reports "not sleeping well" even after receiving PRN's. Pt denies suicidal thoughts at this time "I just want my breathing treatment." "I will be okay right now." Pt' has urinal next to bed as alot of movement causes him to short of breath. Pt denies A/VH, H/I.
[2020-11-04] MEDS: aspirin 81mg tab.chew PO SCH (08:37)
[2020-11-04] MEDS: nicotine 21mg patch - 24 hr TD SCH (08:37)
[2020-11-04] MEDS: sertraline 50mg tablet PO SCH (08:37)
[2020-11-04] MEDS: HYDROcodone/acetaminophen 10/325mg tab PO PRN ×2 (08:49→17:22)
--- NOTE | 2020-11-04 09:10 | NUR ---
Pt resting comfortably no distress noted, respirations even and unlabored. Pt ate 100% of his breakfast.
--- NOTE | 2020-11-04 11:06 | NUR ---
Pt awake sitting up in bed, pt has no needs. No c/o of pain.
--- NOTE | 2020-11-04 12:31 | NUR ---
Pt reported "I am not feeling well." Pt is sitting on top of his bed, staring towards nurses station. Pt states his anxiety is 6/10. PRN Ativan 1mg was administered.
--- NOTE | 2020-11-04 14:07 | NUR ---
Pt came to nurse desk in his wheelchair and stated "I need to get $20 to my cousin, its just something I need to do." Pt then stated its for "a family gathering." Pt is unsure how to get ahold of his cousin. Strap Making Machine Operator explained that his valuable were locked up in the safe and money isn't allowed on unit. Pt seemed okay with the answer. Pt then said "I just need a can of chew." Pt's respirations were rapid and shallow, shortly after getting into wheelchair. Pt's O2 is 90 on RA, pulse 84. Pt calmed and breathing slowed back down. Pt has chronic COPD.
--- NOTE | 2020-11-04 15:51 | NUR ---
Pt at nurse desk telling jokes. Pt is pleasant and calm. Respirations even and unlabored.
--- NOTE | 2020-11-04 17:23 | NUR ---
Pt reported pain 10/26 when vitals were obtained. BP elevated 153/95. Administered PRN Smilax . Will reassess BP.
[2020-11-04] MEDS: lactose-reduced food (Ensure Enlive) - 237ml bottle PO SCH (18:00)
--- NOTE | 2020-11-04 20:00 | NUR ---
Pt sitting in w/c, rolling around unit. Once he saw RT, pt requested a breathing tx. RT made aware.
--- NOTE | 2020-11-04 22:00 | NUR ---
Pt asleep in bed. No complaints voiced or reported.
--- NOTE | 2020-11-05 00:05 | NUR ---
Pt sleeping. + rise and fall of chest noted. No complaints voiced or reported.
[2020-11-05] MEDS: albuterol 2.5 MG/3 ML nebule NEB PRN ×3 (01:38→23:04)
--- NOTE | 2020-11-05 09:00 | NUR ---
PT AWAKE TO EAT BREAKFAST AND USE URINAL
--- NOTE | 2020-11-05 09:10 | NUR ---
PT RESTING WITH EYES CLOSED RR EQUAL AND UNLABORED.
--- NOTE | 2020-11-05 11:10 | NUR ---
PT RESTING RR EQUAL AND UNLABORED
[2020-11-05] MEDS: nicotine 21mg patch - 24 hr TD SCH (11:47)
[2020-11-05] MEDS: sertraline 50mg tablet PO SCH (11:47)
[2020-11-05] MEDS: HYDROcodone/acetaminophen 10/325mg tab PO PRN ×2 (11:50→19:23)
[2020-11-05] MEDS: aspirin 81mg tab.chew PO SCH (11:51)
[2020-11-05] MEDS: lactose-reduced food (Ensure Enlive) - 237ml bottle PO SCH ×3 (11:51→18:00)
--- NOTE | 2020-11-05 15:39 | NUR ---
CALL FROM [facility] FOR NURSE TO NURSE FOR POSSIBLE PLACEMENT. ALL QUESTIONS ANSWERED. THEY WILL PRESENT PT TO THEIR MD AND NOTIFY THE [facility] OFFICE IF ACCEPTED
--- NOTE | 2020-11-05 17:52 | NUR ---
PT UP TO WC AND TO BR WITH OUT ASSIST
--- NOTE | 2020-11-05 18:30 | NUR ---
Received report from ANITHA Jackson. Patient in no distress. He is eating dinner. In view from nurses station.
[2020-11-05] MEDS: LORazepam 1 MG tablet PO PRN (19:24)
--- NOTE | 2020-11-05 19:36 | NUR ---
Patient is well oriented. Disheveled looking. Wearing unit scrubs. Patient complains of feeling hopeless, "I might as well be ." Patient complains of "all over" body pain and generalized anxiety. Patient is cooperative with staff.
--- NOTE | 2020-11-05 22:56 | NUR ---
Patient complained of subjective SOB. B/P 132/87, Pulse 90, SpO2 is 94 percent on room air. Resp is 14. Lung blount are clear and equal bilat with moderate tidal volume. RT called.
--- NOTE | 2020-11-05 23:00 | NUR ---
Patient sleeps quietly. Post breathing treatment. No distress. In view from nurses station.
--- NOTE | 2020-11-05 23:30 | NUR ---
Patient in no distress. RT was here, a Beta 2 neb was administered. Patient rests quietly, going back to sleep.
--- NOTE | 2020-11-06 01:57 | NUR ---
Patient sleeping on his right side, bed is low. No distress.
--- NOTE | 2020-11-06 03:21 | NUR ---
Patient sleeps quietly, knees flexed, patient is on his left side. Patient has self re-positioned.
--- NOTE | 2020-11-06 04:48 | NUR ---
Patient sleeps quietly, low fowlers position in bed. No distress.
--- NOTE | 2020-11-06 07:35 | NUR ---
Pt sleeping, resp unlabored
[2020-11-06] MEDS: aspirin 81mg tab.chew PO SCH (08:21)
[2020-11-06] MEDS: sertraline 50mg tablet PO SCH (08:22)
[2020-11-06] MEDS: nicotine 21mg patch - 24 hr TD SCH (08:23)
[2020-11-06] MEDS: LORazepam 1 MG tablet PO PRN ×2 (08:26→19:09)
--- NOTE | 2020-11-06 08:31 | NUR ---
Pt ate breakfast, took meds, requested anxiety med. Ativan given
--- NOTE | 2020-11-06 11:05 | NUR ---
PT sleeping, resp unlabored
--- NOTE | 2020-11-06 13:03 | NUR ---
Pt eating lunch
--- NOTE | 2020-11-06 14:51 | NUR ---
Pt sleeping, resp unlabored
--- NOTE | 2020-11-06 16:27 | NUR ---
Yeison farley in [facility] - 11/06/20 at 1629 by [email or web address] Pt requests breathing treatment. RT called
--- NOTE | 2020-11-06 16:30 | NUR ---
Pt requests breathing treatment. RT called. No distress noted
[2020-11-06] MEDS: albuterol 2.5 MG/3 ML nebule NEB PRN (16:43)
--- NOTE | 2020-11-06 16:47 | NUR ---
RT here for breathing tx
[2020-11-06] MEDS: lactose-reduced food (Ensure Enlive) - 237ml bottle PO SCH ×3 (18:00→18:51)
[2020-11-06] MEDS: traZODone 50mg tablet PO PRN (19:09)
--- NOTE | 2020-11-06 20:08 | NUR ---
Patient up to bathroom and back independently.
--- NOTE | 2020-11-06 21:09 | NUR ---
Patient laying back in bed- noted to seem restless. Even and unlabored respirations.
[2020-11-06] MEDS: HYDROcodone/acetaminophen 10/325mg tab PO PRN (21:30)
--- NOTE | 2020-11-06 21:50 | NUR ---
Pain medication administered per request
--- NOTE | 2020-11-06 22:52 | NUR ---
Patient woke up requesting snack- sandwich provided per request.
--- NOTE | 2020-11-07 01:09 | NUR ---
Patient resting quietly in bed, even and unlabored respirations. Appears to be asleep at this time.
[2020-11-07] MEDS: LORazepam 1 MG tablet PO PRN ×4 (03:06→23:01)
[2020-11-07] MEDS: HYDROcodone/acetaminophen 10/325mg tab PO PRN ×2 (03:08→23:01)
--- NOTE | 2020-11-07 03:10 | NUR ---
Pain and anxiety medication provided per request. Patient was sitting on side of bed rocking back and forth. Urinal also emptied for patient, no further requests at this time.
--- NOTE | 2020-11-07 05:10 | NUR ---
Patient resting in bed, even and unlabored respirations. When woken up for vitals patient stated "and I had finally been able to fall asleep".
--- NOTE | 2020-11-07 07:00 | NUR ---
Received pt asleep in bed in no distress.
--- NOTE | 2020-11-07 09:00 | NUR ---
Pt did not awake for breakfast or medications. No distress noted.
[2020-11-07] MEDS: lactose-reduced food (Ensure Enlive) - 237ml bottle PO SCH ×3 (10:00→18:00)
[2020-11-07] MEDS: aspirin 81mg tab.chew PO SCH (10:21)
[2020-11-07] MEDS: nicotine 21mg patch - 24 hr TD SCH (10:21)
[2020-11-07] MEDS: sertraline 50mg tablet PO SCH (10:21)
--- NOTE | 2020-11-07 11:00 | NUR ---
Pt awoke and ate breakfast and took medications then returned to sleep.
--- NOTE | 2020-11-07 13:00 | NUR ---
Pt remains asleep without complaints.
--- NOTE | 2020-11-07 15:00 | NUR ---
Pt was up for lunch and has since fallen back to sleep.
--- NOTE | 2020-11-07 17:00 | NUR ---
Pt continues to sleep without signs of distress.
[2020-11-07] MEDS: albuterol 2.5 MG/3 ML nebule NEB PRN (18:55)
--- NOTE | 2020-11-07 19:00 | NUR ---
RT at bedside providing patient with breathing treatment as requested. At this time patient has Ensure shake he has not drank yet. Also provided with anxiety pill per request.
--- NOTE | 2020-11-07 21:00 | NUR ---
Patient laying on her left side, noted to cough intermittently after the breathing treatment. Even and unlabored respirations. Resting quietly.
[2020-11-07] MEDS: traZODone 50mg tablet PO PRN (23:01)
--- NOTE | 2020-11-07 23:05 | NUR ---
Patient provided with pain, anxiety and sleeping medication per request. Used urinal at bedside. No further needs at this time.
--- NOTE | 2020-11-08 01:07 | NUR ---
Patient resting quietly in bed, even and unlabored respirations. Appears to be asleep.
--- NOTE | 2020-11-08 03:07 | NUR ---
Patient resting quietly in bed, appears to be sleeping.
--- NOTE | 2020-11-08 05:07 | NUR ---
Patient resting quietly in bed, even and unlabored respirations.
--- NOTE | 2020-11-08 07:00 | NUR ---
Received Pt in bed sleeping w/o distress.
[2020-11-08] MEDS: aspirin 81mg tab.chew PO SCH (08:35)
[2020-11-08] MEDS: sertraline 50mg tablet PO SCH (08:35)
[2020-11-08] MEDS: nicotine 21mg patch - 24 hr TD SCH (08:39)
[2020-11-08] MEDS: lactose-reduced food (Ensure Enlive) - 237ml bottle PO SCH ×3 (08:39→18:42)
--- NOTE | 2020-11-08 10:00 | NUR ---
Pt woke and ate breakfast. Pt polite and cooperative. Slow to eat. Pt requested Ativan. When this RN returned to ask about anxiety, he was sleeping. Pt currently appears to have returned to sleep.
[2020-11-08] MEDS: albuterol 2.5 MG/3 ML nebule NEB PRN ×2 (13:26→20:37)
--- NOTE | 2020-11-08 13:46 | NUR ---
Pt awake and ate most of lunch. He met with social workers before lunch who helped him get access to money in his account and work is being done to get housing/room and board. Pt had breathing Tx done and is lying in bed.
[2020-11-08] MEDS: LORazepam 1 MG tablet PO PRN ×2 (15:43→19:37)
--- NOTE | 2020-11-08 16:33 | NUR ---
Pt resting in bed w/o distress. Pt had c/o anxiety and received Ativan/PRN. Remains pleasant and cooperative.
--- NOTE | 2020-11-08 19:00 | NUR ---
Pt lying in bed in no distrss, pt denies MH symptoms, requested ativan and pain pill. Pt given [place] for 8/10 pain and ativan with good effect.
[2020-11-08] MEDS: HYDROcodone/acetaminophen 10/325mg tab PO PRN (19:40)
--- NOTE | 2020-11-08 20:48 | NUR ---
RT at bedside for breathing treatment.
--- NOTE | 2020-11-08 21:00 | NUR ---
Pt appears to be sleeping comfortably, no distress noted.
--- NOTE | 2020-11-08 23:12 | NUR ---
Pt resting comfortably, no distress noted.
[2020-11-09] MEDS ORDERED: NICOTINE POLACRILEX 2 MG LOZENGE BC PRN (01:55)
--- NOTE | 2020-11-09 02:28 | NUR ---
Pt is resting comfortably, no distress noted.
--- NOTE | 2020-11-09 04:48 | NUR ---
Pt sleeping , no signs of distress.
--- NOTE | 2020-11-09 07:15 | NUR ---
PT LAYING ON SIDE WITH EYES CLOSED, EFFORTLESS RESPIRATIONS OBSERVED.
[2020-11-09] MEDS: lactose-reduced food (Ensure Enlive) - 237ml bottle PO SCH ×3 (08:38→18:30)
[2020-11-09] MEDS: nicotine 21mg patch - 24 hr TD SCH (08:40)
[2020-11-09] MEDS: sertraline 50mg tablet PO SCH (08:45)
[2020-11-09] MEDS: aspirin 81mg tab.chew PO SCH (08:45)
[2020-11-09] MEDS: LORazepam 1 MG tablet PO PRN ×2 (08:45→17:45)
--- NOTE | 2020-11-09 08:45 | NUR ---
PT ATE BREAKFAST TRAY AND NOW LAYING BACK DOWN RESTING. PT REMAINS CALM AND COOPERATIVE.
[2020-11-09] MEDS: HYDROcodone/acetaminophen 10/325mg tab PO PRN ×2 (08:47→17:45)
--- NOTE | 2020-11-09 11:00 | NUR ---
PT PREVIOUSLY MEDICATED FOR PAIN AND ANXIETY PER PT REQUEST. PT HAS SINCE BEEN RESTING COMFORTABLY WITHOUT NEEDS OR COMPLAINTS.
--- NOTE | 2020-11-09 15:20 | NUR ---
PT UP TO USE BATHROOM AND REQUESTING BREATHING TX, RT PAGED
[2020-11-09] MEDS: albuterol 2.5 MG/3 ML nebule NEB PRN (15:41)
--- NOTE | 2020-11-09 19:54 | NUR ---
The patient is resting on his bed.
--- NOTE | 2020-11-09 22:04 | NUR ---
The patient appears to be sleeping
--- NOTE | 2020-11-10 00:03 | NUR ---
The patient appears to be sleeping
[2020-11-10] MEDS: LORazepam 1 MG tablet PO PRN ×3 (02:09→13:34)
[2020-11-10] MEDS: HYDROcodone/acetaminophen 10/325mg tab PO PRN ×2 (02:10→08:57)
[2020-11-10] MEDS: albuterol 2.5 MG/3 ML nebule NEB PRN ×2 (02:12→09:24)
--- NOTE | 2020-11-10 02:40 | NUR ---
The patient reports high anxiety, genralized pain with SOB. RT made aware and breathing treatment given. Ativan and norco prn given
--- NOTE | 2020-11-10 04:06 | NUR ---
The patient appears to be sleeping
--- NOTE | 2020-11-10 06:33 | NUR ---
Assumed care of patient, pt. sleeping at this time. RR even and unlabored
--- NOTE | 2020-11-10 07:40 | NUR ---
Pt. continues to sleep at this time, laying on left side, rr even and unlabored.
--- NOTE | 2020-11-10 08:34 | NUR ---
Pt. sitting up eating breakfast at this time, no s/s of distress noted.
[2020-11-10] MEDS: sertraline 50mg tablet PO SCH (08:51)
[2020-11-10] MEDS: aspirin 81mg tab.chew PO SCH (08:51)
[2020-11-10] MEDS: lactose-reduced food (Ensure Enlive) - 237ml bottle PO SCH ×2 (08:52→13:18)
[2020-11-10] MEDS: nicotine 21mg patch - 24 hr TD SCH (08:52)
--- NOTE | 2020-11-10 09:33 | NUR ---
Pt. receiving PRN breathing treatment at this time, appears to be tolerating procedure well. Addendum: 11/10/20 at 1146 by BENIGNO 1:1 completed at bedside. Pt. presents as guarded, depressed, and slightly irritable at times. He is guarded with conversation and responds to direct questions only with a minimal response. Pt. denies any further S/I, however exhibits chronic depression and anxiety r/t chronic medical conditions.
--- NOTE | 2020-11-10 10:44 | NUR ---
Pt. continues to sleep at this time, laying on left side, rr even and unlabored.
--- NOTE | 2020-11-10 11:38 | NUR ---
Pt. being interviewed by [facility] at this time.
--- NOTE | 2020-11-10 12:40 | NUR ---
[facility] WAS CALLED FOR [facility] SAID THE WAIT TIME IS 1.5 HR WAIT.
--- NOTE | 2020-11-10 12:41 | NUR ---
Pt. continues to sleep at this time, rr even and unlabored. Per social professionals, he no longer meets criteria for a hold and will [facility].
[2020-11-10] MEDS ORDERED: HYDR-3972 PO (13:47)
[2020-11-10] MEDS ORDERED: SERT25TA PO (13:47)
[2020-11-10] MEDS ORDERED: LORA-269 PO (13:47)
[2020-11-10] MEDS ORDERED: TRAZ-251 PO (13:47)
--- NOTE | 2020-11-10 14:01 | NUR ---
Pt. notified of discharge and reports understanding, at bedside dressing at this time.
--- NOTE | 2020-11-10 15:03 | NUR ---
Pt. continues to await discharge at this time, he is dressed in his street clothes resting in bed at this time. RR are even and unlabored.
[2020-11-10 15:45] VITALS: BP 113/73
--- NOTE | 2020-11-10 15:45 | NUR ---
Pt. discharged to the [facility], discharge paperwork was reviewed by this mortgage underwriter and he reported understanding. Pt. was sent with a print out of his current medications, home medications were returned to him from pharmacy, and prescriptions for new medications received at the hospital were written by Dr. Marquez and sent with patient. Pt's belongings were returned to him. He was escorted out via his own w/c accompanied by staff and security to [facility] which will be taking him to [facility]. Pt. is able to contract for safety.
== END 2020-11-10 15:49 | disposition home or self-care (01) ==
LOC: ER 15:49
DX: R45.851 Suicidal ideations (principal); Z20.822 Contact with and (suspected) exposure to COVID-19; F41.9 Anxiety disorder, unspecified; R06.02 Shortness of breath; I10 Essential (primary) hypertension; I25.2 Old myocardial infarction; J44.9 Chronic obstructive pulmonary disease, unspecified; Z91.19 Patient's noncompliance with other medical treatment and regimen; Z59.0 Homelessness; Z79.82 Long term (current) use of aspirin; Z79.899 Other long term (current) drug therapy
CPT/HCPCS: 36415; 80053; 80305; 80320; 81001; 84443; 85025; 87635; 94640; 99285; 99406; C9803; 94760

== ENCOUNTER 2020-11-10 18:59 | Emergency (ER) | payer MEDICARE, MEDICAID ==
[~2020-11-10 18:59] MED LIST changes: +HYDR-3972 PO; +SERT-153 PO; +SERT25TA PO; +TRAZ-251 PO
== END 2020-11-10 21:00 | disposition home or self-care (01) ==
LOC: ER 19:00
DX: Z02.89 Encounter for other administrative examinations (principal); I10 Essential (primary) hypertension; I25.2 Old myocardial infarction; J44.9 Chronic obstructive pulmonary disease, unspecified; Z59.0 Homelessness; Z79.82 Long term (current) use of aspirin; Z79.899 Other long term (current) drug therapy
CPT/HCPCS: 99281